=== PATIENT | female | born 1955 | race Caucasian/White ===

== ENCOUNTER → 2023-12-27 | Day surgery (SDC) | payer MEDICAID, OTHER ==
[~2023-12-27] VITALS: Ht 162.6 cm; Wt 67.2 kg
[~2023-12-27] MED LIST: AMLO1TAB24 PO; LR 1,000 ML IV SCH; ceFAZolin SOD 2 GM in IV 1 EA IV ONE
[2023-12-27 08:08] VITALS: BP 163/89; TEMP 97.7; O2SAT 98
== END | disposition home or self-care (01) ==
LOC: M SDC 07:52
PROVIDERS: ATTEND Urology
DX: R31.0 Gross hematuria (principal); Z53.09 Procedure and treatment not carried out because of other contraindication

== ENCOUNTER 2024-02-06 08:08 | Day surgery (SDC) | payer MEDICAID ==
[~2024-02-06] VITALS: Ht 162.6 cm; Wt 69.0 kg
[~2024-02-06 08:08] MED LIST changes: +LISI10TA22 PO; -LR 1,000 ML IV SCH; -ceFAZolin SOD 2 GM in IV 1 EA IV ONE
[2024-02-06] MEDS ORDERED: ISOVUE-300 61% 100ML VIAL As Ordered ONE (09:15)
[2024-02-06] MEDS ORDERED: ONDANSETRON 4MG 2ML VIAL As Ordered ONE (09:17)
[2024-02-06] MEDS ORDERED: LIDOCAINE 2% 100MG/5ML SDV (FOR ANES.) As Ordered ONE (09:17)
[2024-02-06] MEDS ORDERED: fentaNYL 100 MCG/2 ML INJECTION As Ordered ONE (09:19)
[2024-02-06] MEDS ORDERED: MIDAZOLAM INJ 2MG/2ML VIAL As Ordered ONE (09:19)
[2024-02-06] MEDS ORDERED: propofoL 200 MG/20 ML VIAL As Ordered ONE (09:19)
[2024-02-06] MEDS: ceFAZolin SOD 2 GM in IV 1 EA IV ONE (09:36)
[2024-02-06] MEDS ORDERED: oxyCODONE 5MG TAB PO PRN (10:15)
[2024-02-06] MEDS ORDERED: LR 1,000 ML IV SCH (10:15)
[2024-02-06] MEDS ORDERED: ONDANSETRON 4MG 2ML VIAL IV PRN (10:15)
[2024-02-06] MEDS ORDERED: fentaNYL 100 MCG/2 ML INJECTION IV PRN (10:15)
[2024-02-06] MEDS ORDERED: HYDROMORPHONE HCL 0.5 MG/ 0.5 ML SYRINGE IV PRN (10:15)
[2024-02-06] MEDS ORDERED: OXYB5TAB14 PO (10:20)
[2024-02-06] MEDS ORDERED: oxyBUTYnin 5 MG TAB PO PRN (10:35)
[2024-02-06] MEDS ORDERED: PERCOCET 5MG/325MG TAB PO PRN (10:35)
[2024-02-06 11:00] VITALS: BP 166/91; TEMP 97.4; O2SAT 90
== END 2024-02-06 11:28 | disposition home or self-care (01) ==
LOC: M SDC 08:08
PROVIDERS: ATTEND Urology
DX: R31.0 Gross hematuria (principal); I10 Essential (primary) hypertension; G47.30 Sleep apnea, unspecified; Z79.899 Other long term (current) drug therapy
CPT/HCPCS: 52332; 52351; 76000; 88108; C1769; C2617; J0690; J1100; J2250; J2405; J3010; Q9967